=== PATIENT | female | born 1935 | race Caucasian/White ===

== ENCOUNTER → 2021-09-01 | Outpatient (REF) ==
[2021-09-01 13:07] LABS: PROTHROMBIN TIME 51.4 SECONDS (12.7-14.5)
[2021-09-01 13:17] LABS: INR 5.71
== END ==
LOC: M LAB REF 12:46
PROVIDERS: ATTEND Student in an Organized Health Care Education/Training Program
DX: Z51.81 Encounter for therapeutic drug level monitoring (principal); Z79.899 Other long term (current) drug therapy

== ENCOUNTER → 2021-09-02 | Outpatient (REF) ==
[2021-09-02 13:08] LABS: INR 4.67; PROTHROMBIN TIME 44.1 SECONDS (12.7-14.5)
== END ==
LOC: M LABCFH 12:56
DX: Z79.01 Long term (current) use of anticoagulants (principal)

== ENCOUNTER 2021-10-06 15:57 | Inpatient (IN) | payer MEDICARE, MEDICAID ==
[~2021-10-06] VITALS: Ht 160 cm; Wt 79.9 kg
[2021-10-06] VITALS (10 sets, daily range): BP systolic 134–174; BP diastolic 59–72
[2021-10-06] MEDS ORDERED: PIPERACILLIN/TAZOBACTAM SOD 4.5 GM in D5W MINI-BAG PLUS 50 ML IV SCH (23:00)
[2021-10-06] MEDS ORDERED: VANCOMYCIN HCL 1,000 MG, VIAL MATE ADAPTER 1 EACH in NS 250 ML IV SCH (23:30)
[2021-10-07] VITALS (65 sets, daily range): BP systolic 77–169; BP diastolic 40–91
[2021-10-07] MEDS ORDERED: WARF-23 PO (00:13)
[2021-10-07] MEDS ORDERED: DIGO0.123 PO (00:13)
[2021-10-07] MEDS ORDERED: ACET650T61 PO (00:13)
[2021-10-07] MEDS ORDERED: WARF-20 PO (00:13)
[2021-10-07] MEDS ORDERED: METO50TA7 PO (00:13)
[2021-10-07] MEDS ORDERED: SPIR-10 PO (00:13)
[2021-10-07] MEDS ORDERED: TRAM50TA2 PO (00:13)
[2021-10-07] MEDS ORDERED: D31000TA2 PO (00:13)
[2021-10-07] MEDS ORDERED: CYAN100050 PO (00:13)
[2021-10-07] MEDS ORDERED: FURO40TA2 PO (00:13)
[2021-10-07] MEDS ORDERED: GABA-1171 PO ×2 (00:13)
[2021-10-07] MEDS ORDERED: VITA100024 PO (00:13)
[2021-10-07] MEDS ORDERED: HOME MED LIST COMPLETE! XX SCH (00:15)
[2021-10-07 00:19] LABS: HEMATOCRIT 26.8 % (36.0-47.0); MEAN CORPUSCULAR HEMOGLOBIN 25.8 pg (27.0-33.0); MEAN CORPUSCULAR HGB CONC 29.9 g/dl (32.0-36.5); MEAN CORPUSCULAR VOLUME 86.5 fl (80.0-96.0); PLATELET COUNT, AUTOMATED 212 10^3/uL (150-450); WHITE BLOOD COUNT 17.3 10^3/uL (4.0-10.0)
[2021-10-07 00:24] LABS: INR 4.05; PROTHROMBIN TIME 39.5 SECONDS (12.7-14.5)
[2021-10-07 00:28] LABS: ALBUMIN 2.5 GM/DL (3.2-5.2); BILIRUBIN,TOTAL 0.3 MG/DL (0.2-1.0); CALCIUM LEVEL 7.7 MG/DL (8.8-10.2); CREATININE FOR GFR 2.79 MG/DL (0.55-1.30); GLOMERULAR FILTRATION RATE 17.1 (>32); MAGNESIUM LEVEL 2.1 MG/DL (1.8-2.4); POTASSIUM SERUM 3.9 MEQ/L (3.5-5.1); TOTAL PROTEIN 6.3 GM/DL (6.4-8.2)
[2021-10-07] MEDS ORDERED: VANCOMYCIN INTERMITTENT/PULSE DOSING BY CLINICAL PHARMACIST PER DOSING PROTOCOL XX SCH (01:00)
[2021-10-07] MEDS: PIPERACILLIN/TAZOBACTAM SOD 2.25 GM in D5W MINI-BAG PLUS 50 ML IV SCH ×3 (02:35→13:18)
[2021-10-07 06:36] LABS: BASO # 0.1 10^3/uL (0.0-0.2); BASO % 0.4 % (0.0-1.0); EOS # 0.3 10^3/uL (0.0-0.5); HEMATOCRIT 26.3 % (36.0-47.0); HEMOGLOBIN 7.6 g/dl (12.0-15.5); LYMPH # 1.6 10^3/uL (1.5-5.0); LYMPH % 10.6 % (24.0-44.0); MEAN CORPUSCULAR HEMOGLOBIN 25.5 pg (27.0-33.0); MEAN CORPUSCULAR HGB CONC 28.9 g/dl (32.0-36.5); MEAN CORPUSCULAR VOLUME 88.3 fl (80.0-96.0); MONO % 10.8 % (2.0-8.0); NEUTROPHILS # 11.3 10^3/uL (1.5-8.5); NEUTROPHILS % 75.7 % (36.0-66.0); PLATELET COUNT, AUTOMATED 195 10^3/uL (150-450); RED BLOOD COUNT 2.98 10^6/uL (4.00-5.40); WHITE BLOOD COUNT 14.9 10^3/uL (4.0-10.0)
[2021-10-07 06:41] LABS: MONO # 1.6 10^3/uL (0.0-0.8)
[2021-10-07 06:59] LABS: INR 4.46; PROTHROMBIN TIME 42.6 SECONDS (12.7-14.5)
[2021-10-07 07:26] LABS: CALCIUM LEVEL 7.5 MG/DL (8.8-10.2); CREATININE FOR GFR 2.41 MG/DL (0.55-1.30); GLOMERULAR FILTRATION RATE 20.3 (>32)
[2021-10-07] MEDS ORDERED: VANCOMYCIN HCL 1,000 MG, VIAL MATE ADAPTER 1 EACH in NS 250 ML IV ONE (08:00)
[2021-10-07] MEDS ORDERED: PANTOPRAZOLE 40MG VIAL (C9113 PER 1) IV SCH (09:00)
[2021-10-07 09:23] LABS: HEMOGLOBIN A1c 5.7 %
[2021-10-07] MEDS: DIGOXIN 0.125 MG TAB PO SCH (09:54)
[2021-10-07] MEDS: ASCORBIC ACID 500 MG TAB PO SCH (09:54)
[2021-10-07] MEDS: CYANOCOBALAMIN 500 MCG TAB PO SCH (09:54)
[2021-10-07] MEDS: VITAMIN D 1,000 INTERNATIONAL UNITS TABLET PO SCH (09:54)
[2021-10-07] MEDS: GABAPENTIN 100 MG CAP PO SCH ×3 (09:55→20:42)
[2021-10-07] MEDS ORDERED: ACETAMINOPHEN TAB 650MG DOSE (2X325MG) PO PRN (11:55)
[2021-10-07] MEDS: ACETAMINOPHEN TAB 650MG DOSE (2X325MG) PO PRN (12:12)
[2021-10-07] MEDS ORDERED: NS 500 ML IV ONE (13:55)
[2021-10-07] MEDS ORDERED: PILL CUTTER 1 EACH XX PRN (15:15)
[2021-10-07] MEDS: metroNIDAZOLE 500 MG in IV 1 EA IV SCH ×2 (16:49→23:47)
[2021-10-07] MEDS ORDERED: WARFARIN SOD 4MG TAB PO SCH (17:00)
[2021-10-07] MEDS: VANCOMYCIN ORAL SOL 250MG/5ML ORAL SYRINGE PO SCH ×2 (17:03→23:48)
[2021-10-07] MEDS: LACTOBACILLUS ACIDOPHILUS CAP (BACID) PO SCH ×2 (17:03→20:42)
[2021-10-07] MEDS: CEFEPIME HCL 1 GM in D5W MINI-BAG PLUS 50 ML IV SCH (18:28)
[2021-10-07 21:50] LABS: HEMATOCRIT 30.1 % (36.0-47.0); HEMOGLOBIN 8.9 g/dl (12.0-15.5); MEAN CORPUSCULAR HEMOGLOBIN 25.7 pg (27.0-33.0); MEAN CORPUSCULAR HGB CONC 29.6 g/dl (32.0-36.5); PLATELET COUNT, AUTOMATED 201 10^3/uL (150-450); RED BLOOD COUNT 3.46 10^6/uL (4.00-5.40); WHITE BLOOD COUNT 11.2 10^3/uL (4.0-10.0)
[2021-10-08] VITALS (19 sets, daily range): BP systolic 102–198; BP diastolic 56–112
[2021-10-08 03:46] LABS: HEMATOCRIT 30.2 % (36.0-47.0); MEAN CORPUSCULAR HEMOGLOBIN 25.9 pg (27.0-33.0); MEAN CORPUSCULAR HGB CONC 29.8 g/dl (32.0-36.5); PLATELET COUNT, AUTOMATED 209 10^3/uL (150-450); RED BLOOD COUNT 3.47 10^6/uL (4.00-5.40)
[2021-10-08] MEDS: CEFEPIME HCL 1 GM in D5W MINI-BAG PLUS 50 ML IV SCH ×2 (06:12→18:36)
[2021-10-08] MEDS: VANCOMYCIN ORAL SOL 250MG/5ML ORAL SYRINGE PO SCH ×3 (06:12→18:37)
[2021-10-08 06:27] LABS: BASO % 0.4 % (0.0-1.0); EOS # 0.4 10^3/uL (0.0-0.5); EOS % 3.5 % (0.0-3.0); HEMATOCRIT 29.5 % (36.0-47.0); HEMOGLOBIN 8.7 g/dl (12.0-15.5); LYMPH # 0.8 10^3/uL (1.5-5.0); LYMPH % 8.2 % (24.0-44.0); MEAN CORPUSCULAR HEMOGLOBIN 25.6 pg (27.0-33.0); MEAN CORPUSCULAR HGB CONC 29.5 g/dl (32.0-36.5); MEAN CORPUSCULAR VOLUME 86.8 fl (80.0-96.0); MONO # 1.2 10^3/uL (0.0-0.8); MONO % 12.4 % (2.0-8.0); NEUTROPHILS # 7.4 10^3/uL (1.5-8.5); NEUTROPHILS % 75.1 % (36.0-66.0); PLATELET COUNT, AUTOMATED 211 10^3/uL (150-450); WHITE BLOOD COUNT 9.9 10^3/uL (4.0-10.0)
[2021-10-08 06:36] LABS: INR 4.06; PROTHROMBIN TIME 39.7 SECONDS (12.7-14.5)
[2021-10-08 06:47] LABS: CALCIUM LEVEL 8.3 MG/DL (8.8-10.2); CREATININE FOR GFR 1.55 MG/DL (0.55-1.30); GLOMERULAR FILTRATION RATE 33.7 (>32); POTASSIUM SERUM 4.2 MEQ/L (3.5-5.1)
[2021-10-08] MEDS: GABAPENTIN 100 MG CAP PO SCH ×3 (09:00→22:16)
[2021-10-08] MEDS: metroNIDAZOLE 500 MG in IV 1 EA IV SCH ×2 (09:00→16:59)
[2021-10-08] MEDS: LACTOBACILLUS ACIDOPHILUS CAP (BACID) PO SCH ×4 (09:00→22:15)
[2021-10-08] MEDS: ASCORBIC ACID 500 MG TAB PO SCH (09:01)
[2021-10-08] MEDS: FAMOTIDINE 20 MG TAB PO SCH (09:01)
[2021-10-08] MEDS: CYANOCOBALAMIN 500 MCG TAB PO SCH (09:01)
[2021-10-08] MEDS: VITAMIN D 1,000 INTERNATIONAL UNITS TABLET PO SCH (09:01)
[2021-10-08] MEDS ORDERED: WARFARIN SOD 5MG TAB PO SCH (17:00)
[2021-10-09] MEDS: VANCOMYCIN ORAL SOL 250MG/5ML ORAL SYRINGE PO SCH ×2 (00:55→06:38)
[2021-10-09] MEDS: metroNIDAZOLE 500 MG in IV 1 EA IV SCH ×2 (01:13→09:29)
[2021-10-09] MEDS: ACETAMINOPHEN TAB 650MG DOSE (2X325MG) PO PRN (03:52)
[2021-10-09 06:00] VITALS: BP 140/90
[2021-10-09] MEDS: CEFEPIME HCL 1 GM in D5W MINI-BAG PLUS 50 ML IV SCH ×2 (06:38→18:14)
[2021-10-09] MEDS ORDERED: SODIUM CHLORIDE 0.9% INJ 10 ML SYR IV PRN (06:50)
[2021-10-09 08:01] LABS: BASO # 0.1 10^3/uL (0.0-0.2); BASO % 0.6 % (0.0-1.0); EOS # 0.2 10^3/uL (0.0-0.5); EOS % 2.5 % (0.0-3.0); HEMATOCRIT 27.5 % (36.0-47.0); HEMOGLOBIN 8.2 g/dl (12.0-15.5); MEAN CORPUSCULAR HEMOGLOBIN 25.2 pg (27.0-33.0); MEAN CORPUSCULAR HGB CONC 29.8 g/dl (32.0-36.5); MEAN CORPUSCULAR VOLUME 84.6 fl (80.0-96.0); MONO % 19.3 % (2.0-8.0); NEUTROPHILS % 65.9 % (36.0-66.0); PLATELET COUNT, AUTOMATED 220 10^3/uL (150-450); RED BLOOD COUNT 3.25 10^6/uL (4.00-5.40); WHITE BLOOD COUNT 9.1 10^3/uL (4.0-10.0)
[2021-10-09 08:14] LABS: PROTHROMBIN TIME 31.5 SECONDS (12.7-14.5)
[2021-10-09 08:24] LABS: CALCIUM LEVEL 8.2 MG/DL (8.8-10.2); CREATININE FOR GFR 1.26 MG/DL (0.55-1.30); GLOMERULAR FILTRATION RATE 42.9 (>32); POTASSIUM SERUM 4.1 MEQ/L (3.5-5.1)
[2021-10-09 08:57] LABS: MONO # 1.8 10^3/uL (0.0-0.8)
[2021-10-09] MEDS: LACTOBACILLUS ACIDOPHILUS CAP (BACID) PO SCH ×4 (09:29→21:14)
[2021-10-09] MEDS: ASCORBIC ACID 500 MG TAB PO SCH (09:30)
[2021-10-09] MEDS: CYANOCOBALAMIN 500 MCG TAB PO SCH (09:31)
[2021-10-09] MEDS: METOPROLOL TART 25 MG TABLET PO SCH ×2 (09:32→21:13)
[2021-10-09] MEDS: GABAPENTIN 100 MG CAP PO SCH ×3 (09:32→21:14)
[2021-10-09] MEDS: DIGOXIN 0.125 MG TAB PO SCH (09:34)
[2021-10-09] MEDS: FAMOTIDINE 20 MG TAB PO SCH (09:34)
[2021-10-09] MEDS: VITAMIN D 1,000 INTERNATIONAL UNITS TABLET PO SCH (09:35)
[2021-10-09 14:00] VITALS: BP 157/70
[2021-10-09] MEDS: SODIUM CHLORIDE 0.9% INJ 10 ML SYR IV SCH ×2 (14:00→21:06)
[2021-10-09] MEDS: FIDAXOMICIN 200 MG TAB (DIFICID) PO SCH ×2 (15:09→21:13)
[2021-10-09] MEDS: WARFARIN SOD 5MG TAB PO ONE ×2 (17:13→18:07)
[2021-10-09 22:00] VITALS: BP 137/84
[2021-10-10 06:00] VITALS: BP 149/62
[2021-10-10] MEDS: SODIUM CHLORIDE 0.9% INJ 10 ML SYR IV SCH (06:00)
[2021-10-10] MEDS: CEFEPIME HCL 1 GM in D5W MINI-BAG PLUS 50 ML IV SCH ×2 (06:15→18:22)
[2021-10-10 06:38] LABS: BASO # 0.1 10^3/uL (0.0-0.2); BASO % 0.8 % (0.0-1.0); EOS # 0.5 10^3/uL (0.0-0.5); EOS % 5.4 % (0.0-3.0); HEMATOCRIT 29.6 % (36.0-47.0); HEMOGLOBIN 8.8 g/dl (12.0-15.5); LYMPH # 1.4 10^3/uL (1.5-5.0); LYMPH % 15.2 % (24.0-44.0); MEAN CORPUSCULAR HEMOGLOBIN 25.4 pg (27.0-33.0); MEAN CORPUSCULAR HGB CONC 29.7 g/dl (32.0-36.5); MEAN CORPUSCULAR VOLUME 85.5 fl (80.0-96.0); MONO # 1.5 10^3/uL (0.0-0.8); MONO % 16.1 % (2.0-8.0); NEUTROPHILS # 5.7 10^3/uL (1.5-8.5); NEUTROPHILS % 61.5 % (36.0-66.0); PLATELET COUNT, AUTOMATED 245 10^3/uL (150-450); RED BLOOD COUNT 3.46 10^6/uL (4.00-5.40); WHITE BLOOD COUNT 9.3 10^3/uL (4.0-10.0)
[2021-10-10 06:53] LABS: INR 2.35; PROTHROMBIN TIME 26.1 SECONDS (12.7-14.5)
[2021-10-10 06:59] LABS: CALCIUM LEVEL 9.3 MG/DL (8.8-10.2); CREATININE FOR GFR 0.99 MG/DL (0.55-1.30); GLOMERULAR FILTRATION RATE 56.6 (>32); POTASSIUM SERUM 4.3 MEQ/L (3.5-5.1)
[2021-10-10] MEDS: FAMOTIDINE 20 MG TAB PO SCH (08:57)
[2021-10-10] MEDS: FIDAXOMICIN 200 MG TAB (DIFICID) PO SCH ×2 (08:57→20:19)
[2021-10-10] MEDS: LACTOBACILLUS ACIDOPHILUS CAP (BACID) PO SCH ×4 (08:57→20:19)
[2021-10-10] MEDS: ASCORBIC ACID 500 MG TAB PO SCH (08:58)
[2021-10-10] MEDS: GABAPENTIN 100 MG CAP PO SCH ×3 (08:58→20:19)
[2021-10-10] MEDS: METOPROLOL TART 25 MG TABLET PO SCH (09:01)
[2021-10-10] MEDS: VITAMIN D 1,000 INTERNATIONAL UNITS TABLET PO SCH (09:01)
[2021-10-10] MEDS: CYANOCOBALAMIN 500 MCG TAB PO SCH (09:01)
[2021-10-10] MEDS: ACETAMINOPHEN TAB 650MG DOSE (2X325MG) PO PRN (16:08)
[2021-10-10] MEDS: WARFARIN SOD 5MG TAB PO SCH (16:08)
[2021-10-10 21:10] VITALS: BP 153/82
[2021-10-10 22:10] VITALS: BP 155/81
[2021-10-11 06:00] VITALS: BP 155/79
[2021-10-11] MEDS: CEFEPIME HCL 1 GM in D5W MINI-BAG PLUS 50 ML IV SCH ×2 (06:03→18:16)
[2021-10-11 06:31] LABS: BASO # 0.1 10^3/uL (0.0-0.2); BASO % 0.7 % (0.0-1.0); EOS # 0.7 10^3/uL (0.0-0.5); EOS % 6.9 % (0.0-3.0); HEMATOCRIT 27.6 % (36.0-47.0); HEMOGLOBIN 8.2 g/dl (12.0-15.5); LYMPH # 1.4 10^3/uL (1.5-5.0); LYMPH % 14.9 % (24.0-44.0); MEAN CORPUSCULAR HEMOGLOBIN 25.3 pg (27.0-33.0); MEAN CORPUSCULAR HGB CONC 29.7 g/dl (32.0-36.5); MEAN CORPUSCULAR VOLUME 85.2 fl (80.0-96.0); MONO # 1.3 10^3/uL (0.0-0.8); NEUTROPHILS # 5.8 10^3/uL (1.5-8.5); NEUTROPHILS % 61.9 % (36.0-66.0); PLATELET COUNT, AUTOMATED 260 10^3/uL (150-450); RED BLOOD COUNT 3.24 10^6/uL (4.00-5.40); WHITE BLOOD COUNT 9.4 10^3/uL (4.0-10.0)
[2021-10-11 06:42] LABS: INR 2.3; PROTHROMBIN TIME 25.7 SECONDS (12.7-14.5)
[2021-10-11 06:59] LABS: CALCIUM LEVEL 8.8 MG/DL (8.8-10.2); CREATININE FOR GFR 1.01 MG/DL (0.55-1.30); GLOMERULAR FILTRATION RATE 55.3 (>32); POTASSIUM SERUM 4.5 MEQ/L (3.5-5.1)
[2021-10-11] MEDS: CYANOCOBALAMIN 500 MCG TAB PO SCH (08:51)
[2021-10-11] MEDS: FAMOTIDINE 20 MG TAB PO SCH (08:51)
[2021-10-11] MEDS: ASCORBIC ACID 500 MG TAB PO SCH (08:51)
[2021-10-11] MEDS: LACTOBACILLUS ACIDOPHILUS CAP (BACID) PO SCH ×4 (08:51→20:20)
[2021-10-11] MEDS: FIDAXOMICIN 200 MG TAB (DIFICID) PO SCH ×2 (08:51→20:19)
[2021-10-11] MEDS: DIGOXIN 0.125 MG TAB PO SCH (08:52)
[2021-10-11] MEDS: GABAPENTIN 100 MG CAP PO SCH ×3 (08:52→20:19)
[2021-10-11] MEDS: VITAMIN D 1,000 INTERNATIONAL UNITS TABLET PO SCH (08:52)
[2021-10-11] MEDS ORDERED: FUROSEMIDE 40MG/4ML VIAL (J1940) IV ONE (13:00)
[2021-10-11 14:00] VITALS: BP 160/84
[2021-10-11] MEDS: WARFARIN SOD 5MG TAB PO SCH (16:50)
[2021-10-11 17:04] VITALS: BP 122/98
[2021-10-11] MEDS: METOPROLOL TART 12.5 MG PER 1/2 TAB PO SCH (20:20)
[2021-10-11] MEDS: traMADol 50 MG TAB PO PRN (20:25)
[2021-10-11 22:00] VITALS: BP 140/78
[2021-10-12] MEDS: ACETAMINOPHEN TAB 650MG DOSE (2X325MG) PO PRN (01:59)
[2021-10-12 06:00] VITALS: BP 134/71
[2021-10-12 06:49] LABS: BASO # 0.1 10^3/uL (0.0-0.2); BASO % 0.8 % (0.0-1.0); EOS # 0.7 10^3/uL (0.0-0.5); EOS % 6.4 % (0.0-3.0); HEMATOCRIT 28.9 % (36.0-47.0); HEMOGLOBIN 8.8 g/dl (12.0-15.5); LYMPH # 1.8 10^3/uL (1.5-5.0); LYMPH % 15.8 % (24.0-44.0); MEAN CORPUSCULAR HEMOGLOBIN 25.9 pg (27.0-33.0); MEAN CORPUSCULAR HGB CONC 30.4 g/dl (32.0-36.5); MONO % 13.7 % (2.0-8.0); NEUTROPHILS # 6.9 10^3/uL (1.5-8.5); NEUTROPHILS % 59.9 % (36.0-66.0); PLATELET COUNT, AUTOMATED 289 10^3/uL (150-450); WHITE BLOOD COUNT 11.5 10^3/uL (4.0-10.0)
[2021-10-12 07:04] LABS: INR 2.52; PROTHROMBIN TIME 27.5 SECONDS (12.7-14.5)
[2021-10-12 07:15] LABS: CALCIUM LEVEL 8.8 MG/DL (8.8-10.2); CREATININE FOR GFR 1.33 MG/DL (0.55-1.30); GLOMERULAR FILTRATION RATE 40.3 (>32); POTASSIUM SERUM 4.7 MEQ/L (3.5-5.1)
[2021-10-12 07:28] LABS: MONO # 1.6 10^3/uL (0.0-0.8)
[2021-10-12] MEDS ORDERED: SPIRONOLACTONE 25 MG TAB PO SCH (09:00)
[2021-10-12] MEDS: FIDAXOMICIN 200 MG TAB (DIFICID) PO SCH ×2 (09:27→20:05)
[2021-10-12] MEDS: GABAPENTIN 100 MG CAP PO SCH ×3 (09:28→20:05)
[2021-10-12] MEDS: FAMOTIDINE 20 MG TAB PO SCH (09:28)
[2021-10-12] MEDS: FUROSEMIDE 40 MG TAB PO SCH (09:28)
[2021-10-12] MEDS: VITAMIN D 1,000 INTERNATIONAL UNITS TABLET PO SCH (09:28)
[2021-10-12] MEDS: ASCORBIC ACID 500 MG TAB PO SCH (09:28)
[2021-10-12] MEDS: LACTOBACILLUS ACIDOPHILUS CAP (BACID) PO SCH ×4 (09:28→20:05)
[2021-10-12] MEDS: CYANOCOBALAMIN 500 MCG TAB PO SCH (09:29)
[2021-10-12] MEDS: METOPROLOL TART 12.5 MG PER 1/2 TAB PO SCH ×2 (09:30→20:05)
[2021-10-12 14:00] VITALS: BP 121/69
[2021-10-12] MEDS ORDERED: FUROSEMIDE 20MG/2ML VIAL (J1940) IV ONE (14:00)
[2021-10-12] MEDS: WARFARIN SOD 5MG TAB PO SCH (17:01)
[2021-10-12] MEDS: traMADol 50 MG TAB PO PRN (20:09)
[2021-10-12 22:00] VITALS: BP 120/70
[2021-10-13 06:48] VITALS: BP 144/62
[2021-10-13] MEDS ORDERED: SPIRONOLACTONE 25 MG TAB PO SCH (09:00)
[2021-10-13] MEDS: METOPROLOL TART 12.5 MG PER 1/2 TAB PO SCH ×2 (09:00→20:11)
[2021-10-13] MEDS: FIDAXOMICIN 200 MG TAB (DIFICID) PO SCH ×2 (09:05→20:09)
[2021-10-13] MEDS: ASCORBIC ACID 500 MG TAB PO SCH (09:06)
[2021-10-13] MEDS: LACTOBACILLUS ACIDOPHILUS CAP (BACID) PO SCH ×4 (09:06→20:11)
[2021-10-13] MEDS: GABAPENTIN 100 MG CAP PO SCH ×3 (09:11→20:10)
[2021-10-13] MEDS: CYANOCOBALAMIN 500 MCG TAB PO SCH (09:11)
[2021-10-13] MEDS: VITAMIN D 1,000 INTERNATIONAL UNITS TABLET PO SCH (09:12)
[2021-10-13] MEDS: DIGOXIN 0.125 MG TAB PO SCH (09:12)
[2021-10-13] MEDS: FAMOTIDINE 20 MG TAB PO SCH (09:12)
[2021-10-13] MEDS: FUROSEMIDE 40 MG TAB PO SCH ×2 (09:19→17:20)
[2021-10-13 10:29] LABS: BASO # 0.1 10^3/uL (0.0-0.2); BASO % 0.9 % (0.0-1.0); EOS # 0.7 10^3/uL (0.0-0.5); HEMATOCRIT 31.4 % (36.0-47.0); HEMOGLOBIN 9.2 g/dl (12.0-15.5); LYMPH # 1.5 10^3/uL (1.5-5.0); LYMPH % 15.8 % (24.0-44.0); MEAN CORPUSCULAR HEMOGLOBIN 25.3 pg (27.0-33.0); MEAN CORPUSCULAR HGB CONC 29.3 g/dl (32.0-36.5); MEAN CORPUSCULAR VOLUME 86.5 fl (80.0-96.0); MONO # 1.1 10^3/uL (0.0-0.8); MONO % 12.1 % (2.0-8.0); NEUTROPHILS # 5.6 10^3/uL (1.5-8.5); NEUTROPHILS % 60.3 % (36.0-66.0); PLATELET COUNT, AUTOMATED 314 10^3/uL (150-450); RED BLOOD COUNT 3.63 10^6/uL (4.00-5.40); WHITE BLOOD COUNT 9.3 10^3/uL (4.0-10.0)
[2021-10-13 10:37] LABS: INR 2.54; PROTHROMBIN TIME 27.7 SECONDS (12.7-14.5)
[2021-10-13 10:57] LABS: CREATININE FOR GFR 1.39 MG/DL (0.55-1.30); GLOMERULAR FILTRATION RATE 38.3 (>32)
[2021-10-13 14:00] VITALS: BP 114/62
[2021-10-13] MEDS: WARFARIN SOD 5MG TAB PO SCH (17:20)
[2021-10-13] MEDS: traMADol 50 MG TAB PO PRN (20:10)
[2021-10-13] MEDS: BENZONATATE 100MG CAPSULE PO SCH (20:41)
[2021-10-13] MEDS: METOPROLOL TART 25 MG TABLET PO SCH (21:00)
[2021-10-13 22:00] VITALS: BP 155/88
[2021-10-13] MEDS ORDERED: METOPROLOL TART 12.5 MG PER 1/2 TAB PO ONE (22:00)
[2021-10-14 06:00] VITALS: BP 129/70
[2021-10-14 07:30] LABS: HEMATOCRIT 29.4 % (36.0-47.0); HEMOGLOBIN 8.6 g/dl (12.0-15.5); MEAN CORPUSCULAR HEMOGLOBIN 25.5 pg (27.0-33.0); MEAN CORPUSCULAR HGB CONC 29.3 g/dl (32.0-36.5); MEAN CORPUSCULAR VOLUME 87.2 fl (80.0-96.0); PLATELET COUNT, AUTOMATED 303 10^3/uL (150-450); RED BLOOD COUNT 3.37 10^6/uL (4.00-5.40); WHITE BLOOD COUNT 10.1 10^3/uL (4.0-10.0)
[2021-10-14 07:47] LABS: INR 2.9; PARTIAL THROMBOPLASTIN TIME 52.8 SECONDS (25.9-37.0); PROTHROMBIN TIME 30.6 SECONDS (12.7-14.5)
[2021-10-14 08:00] LABS: CALCIUM LEVEL 8.4 MG/DL (8.8-10.2); CREATININE FOR GFR 1.36 MG/DL (0.55-1.30); GLOMERULAR FILTRATION RATE 39.2 (>32); POTASSIUM SERUM 5.4 MEQ/L (3.5-5.1)
[2021-10-14] MEDS: FIDAXOMICIN 200 MG TAB (DIFICID) PO SCH ×2 (08:56→20:46)
[2021-10-14] MEDS: GABAPENTIN 100 MG CAP PO SCH ×3 (08:57→20:46)
[2021-10-14] MEDS: FAMOTIDINE 20 MG TAB PO SCH (08:57)
[2021-10-14] MEDS: CYANOCOBALAMIN 500 MCG TAB PO SCH (08:57)
[2021-10-14] MEDS: ASCORBIC ACID 500 MG TAB PO SCH (08:57)
[2021-10-14] MEDS: VITAMIN D 1,000 INTERNATIONAL UNITS TABLET PO SCH (08:58)
[2021-10-14] MEDS: BENZONATATE 100MG CAPSULE PO SCH ×3 (08:58→20:46)
[2021-10-14] MEDS: LACTOBACILLUS ACIDOPHILUS CAP (BACID) PO SCH ×4 (08:58→20:46)
[2021-10-14] MEDS: METOPROLOL TART 25 MG TABLET PO SCH ×2 (09:00→20:48)
[2021-10-14 14:00] VITALS: BP 110/58
[2021-10-14] MEDS: ACETAMINOPHEN TAB 650MG DOSE (2X325MG) PO PRN (15:22)
[2021-10-14] MEDS: WARFARIN SOD 5MG TAB PO SCH (17:03)
[2021-10-14 22:00] VITALS: BP 133/74
[2021-10-15 06:00] VITALS: BP 124/67
[2021-10-15 06:37] LABS: HEMATOCRIT 28.7 % (36.0-47.0); HEMOGLOBIN 8.5 g/dl (12.0-15.5); MEAN CORPUSCULAR HEMOGLOBIN 25.9 pg (27.0-33.0); MEAN CORPUSCULAR HGB CONC 29.6 g/dl (32.0-36.5); MEAN CORPUSCULAR VOLUME 87.5 fl (80.0-96.0); PLATELET COUNT, AUTOMATED 319 10^3/uL (150-450); RED BLOOD COUNT 3.28 10^6/uL (4.00-5.40); WHITE BLOOD COUNT 8.5 10^3/uL (4.0-10.0)
[2021-10-15 06:54] LABS: INR 3.56; PROTHROMBIN TIME 35.9 SECONDS (12.7-14.5)
[2021-10-15 06:55] LABS: PARTIAL THROMBOPLASTIN TIME 55.5 SECONDS (25.9-37.0)
[2021-10-15 07:00] LABS: CALCIUM LEVEL 8.7 MG/DL (8.8-10.2); CREATININE FOR GFR 1.13 MG/DL (0.55-1.30); GLOMERULAR FILTRATION RATE 48.6 (>32); POTASSIUM SERUM 5.1 MEQ/L (3.5-5.1)
[2021-10-15] MEDS: CYANOCOBALAMIN 500 MCG TAB PO SCH (08:10)
[2021-10-15] MEDS: LACTOBACILLUS ACIDOPHILUS CAP (BACID) PO SCH ×4 (08:10→21:16)
[2021-10-15] MEDS: BENZONATATE 100MG CAPSULE PO SCH ×3 (08:10→21:16)
[2021-10-15] MEDS: ASCORBIC ACID 500 MG TAB PO SCH (08:10)
[2021-10-15] MEDS: FIDAXOMICIN 200 MG TAB (DIFICID) PO SCH ×2 (08:10→21:16)
[2021-10-15] MEDS: VITAMIN D 1,000 INTERNATIONAL UNITS TABLET PO SCH (08:10)
[2021-10-15] MEDS: GABAPENTIN 100 MG CAP PO SCH ×3 (08:11→21:16)
[2021-10-15] MEDS: FAMOTIDINE 20 MG TAB PO SCH (08:11)
[2021-10-15] MEDS: DIGOXIN 0.125 MG TAB PO SCH (08:13)
[2021-10-15] MEDS: METOPROLOL TART 25 MG TABLET PO SCH ×2 (08:14→21:19)
[2021-10-15] MEDS: WARFARIN SOD 5MG TAB PO SCH (09:54)
[2021-10-15] MEDS: FUROSEMIDE 20 MG TAB PO SCH ×2 (12:11→17:04)
[2021-10-15 14:00] VITALS: BP 121/56
[2021-10-15] MEDS ORDERED: RISATAB3 PO (19:29)
[2021-10-15] MEDS ORDERED: FURO20TA2 PO (19:29)
[2021-10-15] MEDS ORDERED: BENZ-18 PO (19:29)
[2021-10-15] MEDS ORDERED: FIDA200TA PO (19:29)
[2021-10-15] MEDS ORDERED: METO1TAB87 PO (19:29)
[2021-10-15] MEDS ORDERED: FAMO20TA PO (19:29)
[2021-10-15 22:00] VITALS: BP 145/72
[2021-10-16] MEDS ORDERED: guaiFENesin DM LIQ 10ML UD PO ONE (04:25)
[2021-10-16 06:00] VITALS: BP 124/70
[2021-10-16] MEDS: FIDAXOMICIN 200 MG TAB (DIFICID) PO SCH (08:30)
[2021-10-16] MEDS: ASCORBIC ACID 500 MG TAB PO SCH (08:30)
[2021-10-16] MEDS: VITAMIN D 1,000 INTERNATIONAL UNITS TABLET PO SCH (08:30)
[2021-10-16] MEDS: FAMOTIDINE 20 MG TAB PO SCH (08:31)
[2021-10-16] MEDS: BENZONATATE 100MG CAPSULE PO SCH (08:31)
[2021-10-16] MEDS: LACTOBACILLUS ACIDOPHILUS CAP (BACID) PO SCH (08:31)
[2021-10-16] MEDS: CYANOCOBALAMIN 500 MCG TAB PO SCH (08:31)
[2021-10-16] MEDS: GABAPENTIN 100 MG CAP PO SCH (08:31)
[2021-10-16 08:32] VITALS: BP 155/83
[2021-10-16] MEDS: FUROSEMIDE 20 MG TAB PO SCH (08:32)
[2021-10-16] MEDS: METOPROLOL TART 25 MG TABLET PO SCH (08:32)
[2021-10-16 08:46] LABS: HEMATOCRIT 29.6 % (36.0-47.0); MEAN CORPUSCULAR HEMOGLOBIN 25.9 pg (27.0-33.0); MEAN CORPUSCULAR HGB CONC 30.4 g/dl (32.0-36.5); MEAN CORPUSCULAR VOLUME 85.1 fl (80.0-96.0); PLATELET COUNT, AUTOMATED 350 10^3/uL (150-450); RED BLOOD COUNT 3.48 10^6/uL (4.00-5.40); WHITE BLOOD COUNT 10.1 10^3/uL (4.0-10.0)
[2021-10-16 09:11] LABS: INR 3.53; PROTHROMBIN TIME 35.6 SECONDS (12.7-14.5)
[2021-10-16 09:12] LABS: PARTIAL THROMBOPLASTIN TIME 49.3 SECONDS (25.9-37.0)
[2021-10-16 09:13] LABS: CREATININE FOR GFR 1.12 MG/DL (0.55-1.30); GLOMERULAR FILTRATION RATE 49.1 (>32); POTASSIUM SERUM 4.8 MEQ/L (3.5-5.1)
[2021-10-16 09:46] LABS: ERYTHROCYTE SEDIMENTATION RATE 67 mm/hr (0-30)
== END 2021-10-16 08:55 | disposition home or self-care (01) | DRG 871 ==
LOC: M PCU 22:31 → M MSPAV 10-08 20:43
PROVIDERS: ADMIT Family Medicine; ATTEND Internal Medicine
DX: A41.9 Sepsis, unspecified organism (principal); R65.21 Severe sepsis with septic shock; J18.9 Pneumonia, unspecified organism; I50.33 Acute on chronic diastolic (congestive) heart failure; N39.0 Urinary tract infection, site not specified; A04.72 Enterocolitis due to Clostridium difficile, not specified as recurrent; I48.20 Chronic atrial fibrillation, unspecified; N17.9 Acute kidney failure, unspecified; I13.0 Hypertensive heart and chronic kidney disease with heart failure and stage 1 through stage 4 chronic kidney disease, or unspecified chronic kidney disease; I48.91 Unspecified atrial fibrillation; M19.90 Unspecified osteoarthritis, unspecified site; N18.9 Chronic kidney disease, unspecified; Z95.2 Presence of prosthetic heart valve; Z79.899 Other long term (current) drug therapy; Z88.8 Allergy status to other drugs, medicaments and biological substances; Z96.651 Presence of right artificial knee joint; D63.8 Anemia in other chronic diseases classified elsewhere; M06.9 Rheumatoid arthritis, unspecified; I49.5 Sick sinus syndrome

== ENCOUNTER → 2021-10-16 | Outpatient (CLI) | payer MEDICARE, MEDICAID ==
[~2021-10-16] VITALS: Ht 160 cm; Wt 79.9 kg
[~2021-10-16] MED LIST: ACET650T61 PO; BENZ-18 PO; BEZLOTOXUMAB 800 MG in NS 100 ML IV ONE; CYAN100050 PO; D31000TA2 PO; DIGO0.123 PO; FAMO20TA PO; FIDA200TA PO; FURO20TA2 PO; FURO40TA2 PO; GABA-1171 PO; METO1TAB87 PO; METO50TA7 PO; RISATAB3 PO; SPIR-10 PO; TRAM50TA2 PO; VITA100024 PO; WARF-20 PO; WARF-23 PO
[2021-10-16 09:15] VITALS: BP 129/89
[2021-10-16 11:21] VITALS: BP 130/77
== END ==
LOC: M INFU 09:11
PROVIDERS: ATTEND Internal Medicine Infectious Disease
DX: A04.72 Enterocolitis due to Clostridium difficile, not specified as recurrent (principal); Z88.8 Allergy status to other drugs, medicaments and biological substances
CPT/HCPCS: 96365; J0565